=== PATIENT | female | born 1995 | race African-American/Black ===

== ENCOUNTER 2018-11-14 15:17 | Emergency (ER) | payer BC ==
[~2018-11-14] VITALS: Ht 160 cm; Wt 54.4 kg
[2018-11-14 16:26] VITALS: BP 98/69
[2018-11-14] MEDS ORDERED: KETOROLAC TROMETH 60MG/2ML VIAL IM ONE (17:30)
== END 2018-11-14 17:51 | disposition home or self-care (01) ==
LOC: ER 15:17
DX: S80.811A Abrasion, right lower leg, initial encounter (principal); W22.8XXA Striking against or struck by other objects, initial encounter; Y93.89 Activity, other specified; Y99.8 Other external cause status; Y92.89 Other specified places as the place of occurrence of the external cause
CPT/HCPCS: 96372; 99283; J1885